=== PATIENT | female | born 1950 | race Caucasian/White ===

== ENCOUNTER 2016-04-15 16:19 | Inpatient (IN) | payer MEDICARE ==
--- NOTE | ~2016-04-15 | CT4 ---
[facility] A Service of [facility] RADIOLOGY TEXT RESULTS PATIENT: JUN FANG LOCATION: SED : 46 UNIT #: [id number] AGE: [address]: Dimitris Duran MD SEX: F ORDER DR: [id number] [place] [id number] E MR#: [id number] Acc #: [id number] NAME: JUN FANG : 1950 SEX: F STUDY DATE/TIME: 04/15/2016 16:35 UNIT: SED ROOM: STUDY DESCRIPTION: CT Abd and Pelv Wo Cont Attending Physician: Dimitris Duran M.D. Ordering Physician: Dimitris Duran M.D. Primary Care Physician: Cr Saavedra M.D. MEDICAL IMAGING REPORT This report is preliminary unless electronic signature is present. EXAM CT abdomen and pelvis, noncontrast, 04/15/2016. HISTORY 65-year-old female in the ED complaining of 1-day history of right-side abdomen pain with nausea. Some shortness of air. TECHNIQUE CT examination of the abdomen and pelvis was performed without oral or IV contrast, as ordered. This CT exam was performed with one or more of the following radiation dose reduction techniques: automatic exposure control, adjustment of mA and/or kV according to patient size, and iterative reconstruction. FINDINGS CT ABDOMEN: The examination shows intramuscular and intermuscular rectus sheath hematoma in the right mid-abdominal wall measuring about 10.7 x 4 cm axially x about 8.8 cm in length. No intraabdominal extension of hematoma is seen. No hematoma seen elsewhere within the abdomen, retroperitoneum or pelvis. Cholecystectomy. No bile duct dilatation. Moderate hepatomegaly and diffuse hepatic steatosis. Mild splenomegaly. Liver, pancreas and spleen are otherwise negative. Small benign-appearing cyst in the lower pole right kidney. No visible nephrolithiasis or evidence of urinary obstruction. Moderate diverticulosis throughout the sigmoid and descending colon. Small bowel and colon are otherwise normal in caliber and appearance, as imaged. Appendix is normal. Normal-caliber abdominal aorta. [facility] A Service of [facility] RADIOLOGY TEXT RESULTS PATIENT: JUN FANG LOCATION: [facility] : 46 UNIT #: [id number] AGE: [address]: Dimitris Duran MD SEX: F ORDER DR: Uterus, ovaries, bladder and rectum are within normal limits. Limited lung base images show no active disease in the lower chest. IMPRESSION 1. There is a moderate-sized rectus sheath hematoma in the right mid-abdominal wall measuring about 10.7 x 4 x 8.8 cm. No intraabdominal extension of hemorrhage. No hematoma seen elsewhere within the abdomen, retroperitoneum or pelvis. 2. Moderate hepatomegaly and diffuse hepatic steatosis. Mild splenomegaly. 3. Cholecystectomy. No bile duct dilatation. 4. Diverticulosis. The appendix is normal. Dictated by... Donald Robles M.D. THIS IS AN ELECTRONICALLY VERIFIED REPORT Donald Robles M.D. at 04/16/2016 3:01 PM GASPER/laura TD: 04/15/2016 22:59 JOB #: [id number] MEDICAL IMAGING REPORT
--- NOTE | ~2016-04-15 | CR72 ---
[facility] A Service of [facility] RADIOLOGY TEXT RESULTS PATIENT: JUN FANG LOCATION: SED : 46 UNIT #: [id number] AGE: [address]: Dimitris Duran MD SEX: F ORDER DR: [id number] [place] [id number] E MR#: [id number] Acc #: [id number] NAME: JUN FANG : 1950 SEX: F STUDY DATE/TIME: 04/15/2016 16:27 UNIT: SED ROOM: STUDY DESCRIPTION: CR Chest Single View Portable Attending Physician: Dimitris Duran M.D. Ordering Physician: Dimitris Duran M.D. Primary Care Physician: Cr Saavedra M.D. MEDICAL IMAGING REPORT This report is preliminary unless electronic signature is present. EXAM Portable chest radiograph HISTORY Shortness of breath and cough since yesterday. COMPARISON STUDIES 06/24/2009. FINDINGS Cardiomegaly is identified, although I do not see any definite vascular congestion. Patient has some bibasilar atelectasis. There is some mild blunting of the costophrenic angles bilaterally which could reflect some chronic scarring in conjunction with the atelectasis. No definite acute infiltrates are seen. There is no pneumothorax. Dictated by... Radha Lorenzo M.D. THIS IS AN ELECTRONICALLY VERIFIED REPORT Radha Lorenzo M.D. at 04/18/2016 1:17 PM AFF/pcl TD: 04/15/2016 22:49 JOB #: [id number] MEDICAL IMAGING REPORT
[~2016-04-15 16:19] MED LIST: ANUSOL-HC25 MG/SUPP RC; ASPIRIN81 M2 PO; ATORVASTATIN CA20 MG PO; DARVOCET A500 T1 TA1; FISH OIL 1,001000 M1 PO; GLUCOPHAGE500 MG PO; HYDROCODON-ACE1 EAC7 PO; LISINOPRIL PO; LOSARTAN-HCTZ1 EAC1 PO; LOSARTAN-HCTZ1 EAC2 PO; PROTONIX PO; VIT C PO; VIT D PO; VIT E PO
[2016-04-15 16:51] LABS: URINE SOURCE CLEAN CATCH
[2016-04-15 16:55] LABS: URINE APPEARANCE SL CLOUDY; URINE BILIRUBIN NEG (NEG); URINE BLOOD TRACE-INTACT (NEG); URINE COLOR YELLOW; URINE GLUCOSE NEG (NORM); URINE KETONE TRACE (NEG); URINE LEUKOCYTE ESTERASE 2+ (NEG); URINE NITRATE POS (NEG); URINE PROTEIN TRACE (NEG); URINE SPECIFIC GRAVITY 1.015 (1.003-1.035)
[2016-04-15 17:04] LABS: MICRO INDICATED? YES
[2016-04-15 17:28] LABS: URINE RBC 0-2 /[HPF] (0-2)
[2016-04-15 17:29] LABS: CULTURE INDICATED? YES; URINE BACTERIA 4+ (NEG); URINE SQUAMOUS EPITHELIAL CELL FEW /[HPF]
[2016-04-15 17:37] LABS: BASOPHIL% 0.4 % (0-2.5); EOSINOPHIL% 0.4 % (0.0-7.0); HEMATOCRIT 36.2 % (35.0-45.0); HEMOGLOBIN 12.5 gm/dL (12.0-16.0); LYMPHOCYTE# 1.4 X10e3 (1.0-3.5); MEAN CELL VOLUME 98.4 FL (83-96); MEAN CORPUSCULAR HEMOGLOBIN 34.1 PG (28-34); MEAN CORPUSCULAR HGB CONC 34.6 g/dL (30-36); MEAN PLATELET VOLUME 9.1 FL (6.5-11.5); MONOCYTE# 0.4 X10e3 (0-1.0); MONOCYTE% 12.1 % (3.0-12.0); NEUTROPHIL# 1.6 X10e3 (1.5-7.1); NEUTROPHIL% 47.1 % (40-75); PLATELET COUNT 175 X10e3 (140-420); RED BLOOD COUNT 3.68 X10e (3.90-5.30); RED CELL DISTRIBUTION WIDTH 13.7 % (11.0-15.5); WHITE BLOOD COUNT 3.4 X10e3 (4.0-10.5)
[2016-04-15 17:49] LABS: DIFF IND NO
[2016-04-15 18:14] LABS: ALBUMIN SERUM 3.6 g/dL (3.5-5.0); BILIRUBIN, DIRECT 0.3 mg/dL (0.0-0.2); BILIRUBIN,INDIRECT 0.4 mg/dL (0.0-0.9); BILIRUBIN,TOTAL 0.7 mg/dL (0.2-2.0); BUN/CREATININE RATIO 12.72; CALCIUM SERUM 8.5 mg/dL (8.4-10.2); CREATININE SERUM 1.1 mg/dL (0.6-1.4); GLOM FILT RATE Estimated 52.7 mL/min (>60); PROTEIN TOTAL SERUM 6.9 g/dL (6.0-8.3)
[2016-04-15 18:15] LABS: POTASSIUM 2.8 mmol/L (3.5-5.1)
[2016-04-15] MEDS ORDERED: ASPIRIN PO (22:52)
[2016-04-15] MEDS ORDERED: LIPITOR20 MG PO (22:53)
[2016-04-15] MEDS ORDERED: FISH OIL 1,0001 CAP PO (22:54)
[2016-04-15] MEDS ORDERED: VITAMIN E400 UNI4 PO (22:54)
[2016-04-15] MEDS ORDERED: GLUCOPHAGE500 MG PO (22:55)
[2016-04-15] MEDS ORDERED: VITAMIN C500 M7 PO (22:56)
[2016-04-15] MEDS ORDERED: VITAMIN D1000 UNI1 PO (22:57)
[2016-04-15] MEDS ORDERED: LOSARTAN-HCTZ1 EAC1 PO (22:58)
[2016-04-15] MEDS ORDERED: ANEXSIA 5/325 M1 TA1 PO (22:59)
== END 2016-04-17 17:00 | disposition home or self-care (01) | DRG 556 ==
LOC: SED 16:19 → C4C 22:42
PROVIDERS: Emergency Medicine
PROC: 3E0234Z Introduction of Serum, Toxoid and Vaccine into Muscle, Percutaneous Approach (ICD-10-PCS; principal; 2016-04-16)
DX: M79.81 Nontraumatic hematoma of soft tissue (principal); E11.22 Type 2 diabetes mellitus with diabetic chronic kidney disease; N39.0 Urinary tract infection, site not specified; Z68.41 Body mass index [BMI] 40.0-44.9, adult; I12.9 Hypertensive chronic kidney disease with stage 1 through stage 4 chronic kidney disease, or unspecified chronic kidney disease; N18.9 Chronic kidney disease, unspecified; Z79.84 Long term (current) use of oral hypoglycemic drugs; E78.5 Hyperlipidemia, unspecified; Z90.49 Acquired absence of other specified parts of digestive tract; Z79.82 Long term (current) use of aspirin; Z23 Encounter for immunization; E66.01 Morbid (severe) obesity due to excess calories; E87.6 Hypokalemia; B96.20 Unspecified Escherichia coli [E. coli] as the cause of diseases classified elsewhere
CPT/HCPCS: 36415; 71010; 74176; 80048; 80076; 81003; 82150; 82947; 83036; 83605; 83690; 85025; 87086; 87088; 87186; 90688; 90732; 94640; 94760; 96361; 96374; 96375; 99285; C9113; G0008; G0009; J0696; J1815; J1956; J2270; J2405

== ENCOUNTER → 2016-05-18 | Outpatient (CLI) | payer MEDICARE ==
[~2016-05-18] MED LIST changes: +ANEXSIA 5/325 M1 TA1 PO; +ASPIRIN PO; +FISH OIL 1,0001 CAP PO; +LIPITOR20 MG PO; +VITAMIN C500 M7 PO; +VITAMIN D1000 UNI1 PO; +VITAMIN E400 UNI4 PO
--- NOTE | ~2016-05-18 | US77 ---
[facility] A Service of [facility] RADIOLOGY TEXT RESULTS PATIENT: JUN FANG LOCATION: [facility] : [birth year] UNIT #: [id number] AGE: [address]: Cr Saavedra MD SEX: F ORDER DR: [id number] [facility] [address] [place], [place] [address] [id number] O MR#: [id number] Acc #: [id number] NAME: JUN FANG. : 1950 SEX: F STUDY DATE/TIME: 05/18/2016 12:52 UNIT: CGUS ROOM: STUDY DESCRIPTION: US Kidney Bilateral Complete Attending Physician: Cr Saavedra M.D. Referring Physician: Cr Saavedra M.D. Ordering Physician: Cr Saavedra M.D. Primary Care Physician: Cr Saavedra M.D. MEDICAL IMAGING REPORT This report is preliminary unless electronic signature is present EXAM Renal ultrasound INDICATIONS Renal insufficiency. GFR 49, BUN 9, creatinine 1.16. PORCEDURE Ayala-scale and Doppler imaging kidneys and bladder. COMMPARISON: Comparison with CT from 04/15/2016 FINDINGS Increased liver echotexture compared with the right kidney keeping with steatosis. Right kidney measures 10.7 cm. Bladder unremarkable. Left kidney measures 11.7 cm. No hydronephrosis. There is a 2.6 cm cyst in the lower pole of the right kidney. IMPRESSION 1. 2.6 cm cyst lower pole right kidney. Otherwise negative renal ultrasound. 2. Hepatic steatosis. Dictated by... Mu Lynne M.D. THIS IS AN ELECTRONICALLY VERIFIED REPORT Mu Lynne M.D. at 05/19/2016 9:39 AM HENRIQUE/micheline TD: 05/18/2016 14:34 [facility] A Service [facility] RADIOLOGY TEXT RESULTS PATIENT: JUN FANG LOCATION: [facility] : 46 UNIT #: [id number] AGE: [address]: Cr Saavedra MD SEX: F ORDER DR: JOB #: [id number] MEDICAL IMAGING REPORT Page 1 of 1 COPY
== END | disposition home or self-care (01) ==
LOC: CGUS 12:23
DX: N28.9 Disorder of kidney and ureter, unspecified (principal); N28.1 Cyst of kidney, acquired; K76.0 Fatty (change of) liver, not elsewhere classified
CPT/HCPCS: 76770